=== PATIENT | female | born 1965 | race Caucasian/White ===

== ENCOUNTER 2016-06-28 08:48 | Emergency (ER) | payer OTHER ==
[~2016-06-28] VITALS: Ht 154.9 cm; Wt 70.5 kg
[~2016-06-28 08:48] MED LIST: NOMED
[2016-06-28 09:04] VITALS: BP 116/70; PULSE 81; RESP 15; O2SAT 95
--- NOTE | 2016-06-28 09:49 | ED.REPORT ---
HPI-Extremity Problem Upper Date of Service Jun 28, 2016 ED Provider: Tahmina Anguiano MD Pt is a 51 y/o female presenting to the ED c/o left forearm redness, swelling, and itching onset yesterday. The pt woke up with a swollen and erythematous left forearm yesterday morning and went to see her PCP. She was not started on antibiotics at that time. She decided to come into the ED today because the swelling has worsened. She was experiencing a low-grade fever (100.3 F) and myalgias yesterday which have resolved. She is a smoker. She denies numbness or weakness of the left arm, chills, N/V/D. Nursing Notes Stated Complaint: LEFT ARM SWELLING Chief Complaint: Extremity Trauma Nursing Notes Reviewed: Yes Allergies: Coded Allergies: No Known Allergies (Verified Allergy, Unknown, 04/08/16) Scheduled Clindamycin (Clindamycin) 300 Mg Capsule 300 MG PO QID Miscellaneous Medications No Historical Medication (No Historical Medication) Ea General Time Seen by MD: 09:41 Chief Complaint Other (Left forearm rash) Hx Obtained From: Patient Arrived By: Walk-in Onset Occurred: Yesterday Symptom Duration: Since onset Location: : Arm left Quality: Painful Severity: Current: Mild Severity: Maximum: Mild Past Medical History Past Medical History Denies Past Surgical History Reports: Appendectomy Smoking History Current Every Day Smoker Social History Alcohol Use: "Social" Drug Use: Denies drug use Other Social History: Good social support, , Local resident 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 GI: Denies: Diarrhea, Nausea, Vomiting Physical Exam Initial Vital Signs Vital Signs (First) Date Time Temp Pulse Resp B/P Pulse Ox O2 Delivery O2 Flow Rate FiO2 06/28/16 09:04 36.3 81 15 116/70 95 Room Air Initial VS: Reviewed, Vital signs normal Head / Eyes: Atraumatic, Normocephalic, PERRL ENT: Mucous membranes moist, Conjunctiva normal, No scleral icterus Neck: Supple, Full range of motion Respiratory: Breath sounds normal, Clear to auscultation, No respiratory distress Cardiovascular: Regular rate & rhythm, Heart sounds normal, Intact distal pulses Abdomen / GI: Soft Lower Extremities: Vascular intact, Neuro intact, No swelling, No tenderness Neurologic: Alert, Oriented, Nonfocal Psychiatric: Mood/affect normal, Behavior normal, Normal thought content General/Constitutional: Awake, Alert, No acute distress, Well appearing, Cooperative, Not toxic appearing Upper Extremity / MS: Atraumatic, Full range of motion, No deformity, Neurologic intact, Vascular intact, No ligamentous injury, Tendon function NL, No compartment syndrome, No clubbing/cyanosis Red, inflammated, tight, cellulitis from the knuckles to the elbow of the left arm No axillary adenopathy Interpretation & Diagnostics Lab Results Interpretation Result Diagram: 06/28/16 0958 06/28/16 0958 Test 06/28/16 09:58 06/28/16 13:10 White Blood Count 12.8th/mm3 (3.8-10.1) Red Blood Count 3.89mil/mm3 (3.90-5.20) Hemoglobin 12.2g/dL (12.0-15.6) Hematocrit 35.9% (35.0-46.0) Mean Corpuscular Volume 92.3fL (81-100) Mean Corpuscular Hemoglobin 31.4pg (27.0-35.0) Mean Corpuscular Hemoglobin Concent 34.0% (32.0-37.0) Red Cell Distribution Width 13.3% (12.3-15.4) Platelet Count 314bil/L (150-400) Neutrophils (%) (Auto) 81.9% (40-74) Lymphocytes (%) (Auto) 15.4% (14-46) Monocytes (%) (Auto) 2.2% (4-12) Eosinophils (%) (Auto) 0.1% (0-5) Basophils (%) (Auto) 0.2% (0-3) Sodium Level 138mEq/L (134-144) Potassium Level 3.7mEq/L (3.5-5.2) Chloride Level 100mEq/L (97-108) Carbon Dioxide Level 22mmol/L (18-29) Blood Urea Nitrogen 8mg/dL (6-24) Creatinine 0.56mg/dL (0.57-1.00) Estimat Glomerular Filtration Rate 163mL/min (>59) Glucose Level 134mg/dL (60-99) Calcium Level 9.1mg/dL (8.5-10.1) Magnesium Level 1.9mg/dL (1.6-2.6) Total Bilirubin 0.3mg/dL (0.0-1.2) Aspartate Amino Transf (AST/SGOT) 48U/L (0-50) Alanine Aminotransferase (ALT/SGPT) 57U/L (0-32) Alkaline Phosphatase 110U/L (25-150) Total Protein 6.5g/dL (6.4-8.4) Albumin 3.7g/dL (3.4-5.0) Lactic Acid Level 2.1mmol/L (0.4-2.0) Re-Eval/Medical Decision Med Decision/Clinical Course initally concerned for sepsis. After fluids (and abx) the miminally elevated lactic acid was trending down and the arm looked a bit less red with edges pulling back from the initially defined borders. shared concerns with her, good support and good understanding of proccess and need for medication compliance Re-Evaluation/Progress : Time of Eval: 14:40 Re-Evaluation/Progress Note: Pt rechecked. She is feeling improved. Rash line has decreased from sharpee on points. Informed pt of plan for treatment. Pt understands and agrees with plan for treatment. F/U and RTER warnings given. All questions addressed. Counseled Regarding: Diagnosis, Lab results, Need for follow-up, When/why to return to ED Discharge & Departure Impression: Primary Impression: Cellulitis of left arm Disposition: Home Discharge Condition All VS Reviewed: Yes Condition: Stable Patient Instructions: Cellulitis (ED) Additional Instructions: Your rash is consistent with cellulitis, an infection of the skin of the arm. I am starting you on Septra twice per day, and Clindamycin three times per day in an assumption that this is an MRSA infection. Please take 1 dose of each before bed tonight. If the blood culture results come back to contraindicate the antibiotic choice, you should receive a phone call. Return to the emergency department if you develop fever, chills, worsening swelling, worsening pain, expanding rash, you are feeling weak, vomiting, or for other new or worsening symptoms. Follow-up with your primary care doctor early next week. Referrals: Malu Castrejon (PCP) Aure Attestation Portions of this note were transcribed by Travis Rios. I, Dr. Anguiano personally performed the history, physical exam and medical decision-making; I reviewed and confirmed the accuracy of the information in the transcribed note. Signed by Aure Spencer, 06/28/16 - 1000 copies to: Malu Castrejon Shawna L MD Jun 28, 2016 09:49 TRAVIS RIOS Jun 28, 2016 09:53
[2016-06-28] MEDS ORDERED: cefTRIAXone Inj 2,000 MG in IV Premix 1 EACH IV ONE ×2 (10:15→10:20)
[2016-06-28 10:22] LABS: BASOPHILS % (AUTO) 0.2 % (0-3); EOSINOPHILS % (AUTO) 0.1 % (0-5); MONOCYTES % (AUTO) 2.2 % (4-12); Mean Corpuscular Hemoglobin 31.4 pg (27.0-35.0); Mean Corpuscular Volume 92.3 fL (81-100); NEUTROPHILS % (AUTO) 81.9 % (40-74); Platelet Count 314 bil/L (150-400)
[2016-06-28 10:59] LABS: Magnesium 1.9 mg/dL (1.6-2.6)
[2016-06-28] MEDS ORDERED: 0.9% Sodium Chloride 1,000 ML IV SCH (11:00)
[2016-06-28] MEDS ORDERED: Clindamycin Inj 900 MG in IV Premix 1 EACH IV ONE (11:00)
[2016-06-28] MEDS ORDERED: SULF1TAB7 PO (15:06)
[2016-06-28] MEDS ORDERED: CLIN-78 PO (15:06)
== END 2016-06-28 15:13 | disposition home or self-care (01) ==
LOC: SED 08:48
DX: L03.114 Cellulitis of left upper limb (principal); M79.1 Myalgia; F17.200 Nicotine dependence, unspecified, uncomplicated
CPT/HCPCS: 36415; 80053; 83605; 83735; 85025; 87040; 96361; 96365; 96367; 99284; J0696; J7030

== ENCOUNTER 2016-06-29 02:11 | Emergency (ER) | payer OTHER ==
[~2016-06-29] VITALS: Ht 154.9 cm; Wt 71.8 kg
[~2016-06-29 02:11] MED LIST changes: +CLIN-78 PO; +SULF1TAB7 PO
[2016-06-29 02:15] VITALS: BP 136/77; PULSE 86; RESP 18; O2SAT 99
--- NOTE | 2016-06-29 02:25 | ED.REPORT ---
HPI-Rash / Abscess Date of Service Jun 29, 2016 ED Provider: Tello Hines MD Pt is a 51 y/o female who presents to the ED complaining of rash and itching to the left forearm. Pt came in to the ED here this morning for the rash and was treated with IV fluids and antibiotics, and prescribed Sulfa drugs and Clindamycin. The symptoms have gradually worsened since her recent visit. Nursing Notes Stated Complaint: SWOLLEN LEFT ARM Chief Complaint: Skin Rash/Abscess Nursing Notes Reviewed: Yes Allergies: Coded Allergies: No Known Allergies (Verified Allergy, Unknown, 06/29/16) Scheduled Clindamycin (Clindamycin) 300 Mg Capsule 300 MG PO QID Sulfamethoxazole/Trimeth 800-160 mg (Bactrim DS) 1 Each Tablet 1 TABLET PO BID Miscellaneous Medications No Historical Medication (No Historical Medication) Ea General Time Seen by MD: 02:23 Chief Complaint Rash (left forearm) Hx Obtained From: Patient Arrived By: Walk-in Onset Occurred: Yesterday Symptom Duration: Since onset Location: : Forearm (left) Quality: Itching Severity: Current: Moderate Exacerbated by: Scratching Pertinent Negative: Relieved by nothing Recent Healthcare: Recent hospitalization Similar Sx Previous: Yes Past Medical History Past Medical History Denies Past Surgical History Reports: Appendectomy Smoking History Current Every Day Smoker Social History Alcohol Use: "Social" Drug Use: Denies drug use Other Social History: Good social support, , Local resident 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 Physical Exam Initial Vital Signs Vital Signs (First) Date Time Temp Pulse Resp B/P Pulse Ox O2 Delivery O2 Flow Rate FiO2 06/29/16 02:15 36.7 86 18 136/77 99 Room Air Initial VS: Reviewed, Vital signs normal Head / Eyes: Atraumatic, Normocephalic, PERRL Neck: Supple, Non-tender, Full range of motion Abdomen / GI: Soft, Non-tender, No guarding, No rebound, No distention Neurologic: Alert, Oriented, Nonfocal General/Constitutional: Awake, Alert, Cooperative, Not toxic appearing Color / Condition: Positive: Erythema localized, Rash present Rash / Lesion Location: Positive: Forearm L Respiratory / Chest: Breath sounds NL, Breath sounds = bilat, No respiratory distress, No rales, No rhonchi, No wheezing Cardiovascular: Heart rate NL, Regular rhythm, Heart sounds NL, Peripheral circulation NL Interpretation & Diagnostics Lab Results Interpretation Result Diagram: 06/29/16 0250 Test 06/29/16 02:50 White Blood Count 6.4th/mm3 (3.8-10.1) Red Blood Count 4.93mil/mm3 (3.90-5.20) Hemoglobin 15.4g/dL (12.0-15.6) Hematocrit 45.2% (35.0-46.0) Mean Corpuscular Volume 91.7fL (81-100) Mean Corpuscular Hemoglobin 31.2pg (27.0-35.0) Mean Corpuscular Hemoglobin Concent 34.1% (32.0-37.0) Red Cell Distribution Width 13.7% (12.3-15.4) Platelet Count 222bil/L (150-400) Neutrophils (%) (Auto) 76.1% (40-74) Lymphocytes (%) (Auto) 18.5% (14-46) Monocytes (%) (Auto) 3.8% (4-12) Eosinophils (%) (Auto) 0.9% (0-5) Basophils (%) (Auto) 0.5% (0-3) Lactic Acid Level 1.0mmol/L (0.4-2.0) Re-Eval/Medical Decision Med Decision/Clinical Course Left arm cellulitis with some expansion of the erythema beyond the marked leading edge. It itches. She is generally felt better. IV access was obtained and she was given an additional dose of Rocephin and clindamycin. Labs were unremarkable with no significant elevation of the white count or a lactic acid on this occasion. She will be discharged home to continue her outpatient antibiotics and follow-up with her primary doctor. Counseled Regarding: Diagnosis, Lab results, Need for follow-up, When/why to return to ED Discharge & Departure Impression: Primary Impression: Cellulitis of left arm Disposition: Home Discharge Condition All VS Reviewed: Yes Condition: Stable Patient Instructions: Cellulitis (ED) Additional Instructions: Your white blood count is not elevated and your lactic acid is normal. Received additional doses of Rocephin and clindamycin IV. Continue both of your outpatient antibiotics. Triamcinolone cream for the itching. Elevation. Recheck in 12-24 hours with your primary doctor. Referrals: Malu Castrejon (PCP) Aure Attestation Portions of this note were transcribed by Clark Easton & Volodymyr Basurto. I, Dr. Hines, personally performed the history, physical exam and medical decision-making; I reviewed and confirmed the accuracy of the information in the transcribed note. Signed by:Aure Lewis, 06/29/16 and 04:35 copies to: Malu Castrejon Howard L MD Jun 29, 2016 02:25 Clark Easton Jun 29, 2016 02:46 VOLODYMYR BASURTO Jun 29, 2016 03:02
[2016-06-29] MEDS ORDERED: 0.9% Sodium Chloride 1,000 ML IV ONE (02:33)
[2016-06-29] MEDS ORDERED: cefTRIAXone Inj 2,000 MG in IV Premix 1 EACH IV SCH (02:35)
[2016-06-29] MEDS ORDERED: Clindamycin Inj 900 MG in IV Premix 1 EACH IV ONE (02:35)
[2016-06-29 03:02] LABS: BASOPHILS % (AUTO) 0.5 % (0-3); EOSINOPHILS % (AUTO) 0.9 % (0-5); MONOCYTES % (AUTO) 3.8 % (4-12); Mean Corpuscular Hemoglobin 31.2 pg (27.0-35.0); Mean Corpuscular Volume 91.7 fL (81-100); NEUTROPHILS % (AUTO) 76.1 % (40-74); Platelet Count 222 bil/L (150-400)
[2016-06-29] MEDS: cefTRIAXone Inj 2,000 MG in IV Premix 1 EACH IV ONE ×2 (04:56→05:26)
[2016-06-29] MEDS ORDERED: Triamcinolone 0.1% 30 Gm Cream TOPICAL SCH ×2 (05:00→08:30)
[2016-06-29 05:34] VITALS: BP 122/74; PULSE 78; RESP 12; O2SAT 99
== END 2016-06-29 05:00 | disposition home or self-care (01) ==
LOC: SED 02:11
DX: L03.114 Cellulitis of left upper limb (principal); F17.210 Nicotine dependence, cigarettes, uncomplicated; Z90.49 Acquired absence of other specified parts of digestive tract
CPT/HCPCS: 36415; 83605; 85025; 96365; 96367; 99284; J0696; J7030

== ENCOUNTER 2016-12-01 12:26 | Emergency (ER) | payer OTHER ==
[~2016-12-01] VITALS: Ht 157.5 cm; Wt 68.2 kg
[2016-12-01 12:32] VITALS: BP 132/70; PULSE 73; RESP 16; O2SAT 97
--- NOTE | 2016-12-01 12:40 | ED.REPORT ---
HPI-Rash / Abscess Date of Service Dec 01, 2016 ED Provider: History of Present Illness: left arm redness, increased warmth hx of cellulitis on same arm. right hand dominant. denies pain, denies injury. Started this am Nursing Notes Stated Complaint: LEFT ARM SWOLLEN Chief Complaint: Extremity Trauma Nursing Notes Reviewed: Yes Allergies: Coded Allergies: No Known Allergies (Verified Allergy, Unknown, 06/29/16) Scheduled Clindamycin (Clindamycin) 300 Mg Capsule 300 MG PO QID Sulfamethoxazole/Trimeth 800-160 mg (Bactrim DS) 1 Each Tablet 1 TABLET PO BID Miscellaneous Medications No Historical Medication (No Historical Medication) Ea General Time Seen by MD: 12:40 Chief Complaint Rash Hx Obtained From: Patient Onset Occurred: 5 - 8 hours ago Severity: Current: No pain currently Past Medical History Past Medical History Denies Past Surgical History Reports: Appendectomy Smoking History Current Every Day Smoker Social History Alcohol Use: "Social" Drug Use: Denies drug use Other Social History: Good social support, , Local resident 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 Status Independent Review of Systems Basic Review of Systems : No dysuria, No frequency Neurologic: NL mental status, No weakness, No numbness Psychiatric: Normal thought content Physical Exam Initial Vital Signs Vital Signs (First) Date Time Temp Pulse Resp B/P Pulse Ox O2 Delivery O2 Flow Rate FiO2 12/01/16 12:32 36.3 73 16 132/70 97 Room Air Initial VS: Reviewed, Vital signs normal Head / Eyes: Atraumatic, Normocephalic, PERRL ENT: Mucous membranes moist, Conjunctiva normal, No scleral icterus Neck: Supple, Non-tender, Full range of motion Respiratory: Breath sounds normal, Clear to auscultation, No respiratory distress Cardiovascular: Regular rate & rhythm, Heart sounds normal, Intact distal pulses Abdomen / GI: Soft, Non-tender, No guarding, No rebound, No distention Back: No CVA tenderness Lymphatic: No lymphadenopathy Extremities: Vascular intact, Neuro intact, No swelling, No tenderness Neurologic: Alert, Oriented, Nonfocal Psychiatric: Mood/affect normal, Behavior normal, Normal thought content General/Constitutional: Awake, Alert, No acute distress Head / Eyes: Atraumatic, Normocephalic, PERRL Respiratory / Chest: Atraumatic, Breath sounds NL, Breath sounds = bilat, No respiratory distress Cardiovascular: Heart rate NL, Regular rhythm, Heart sounds NL, No gallop Re-Eval/Medical Decision Med Decision/Clinical Course 51 year old female presents to the ER for evualation of cellulitis. Patient has had this before on the same arm. This time she presents the day she noticed symptoms. No sign of compartment syndrome or cutaneous anthrax. Exam is consistent with cellulitis. Patient is started on antibiotics and is to recheck with primary care or here in the next day or 2. Discharge & Departure Impression: Primary Impression: Cellulitis of left arm Disposition: Home Patient Instructions: Cellulitis (ED) Additional Instructions: Exam indicates a cellulitis. The area has been outlined, timed and dated. If the redness goes past the line by more than 1 inch, return to the ER. No work on Sunday or Sunday or Sunday. You need to be seen by primary care on Sunday or return to the ER. Start bactrim in the am and pm. Get 2 doses in today. Start keflex 500 mg 4 times a day for 7 days. Return with any concerns. Get a sling and use it. Do not use the arm. Referrals: Malu Castrejon (PCP) EDSupervising Provider for APC: Joss Reddy MD copies to: Malu Castrejon Sue ARNP Dec 01, 2016 12:40
== END 2016-12-01 13:07 | disposition home or self-care (01) ==
LOC: SED 12:26
DX: L03.114 Cellulitis of left upper limb (principal); F17.200 Nicotine dependence, unspecified, uncomplicated

== ENCOUNTER 2016-12-02 12:18 | Emergency (ER) | payer OTHER ==
[~2016-12-02] VITALS: Ht 157.5 cm; Wt 68.2 kg
[2016-12-02 12:24] VITALS: BP 154/84; PULSE 76; RESP 18; O2SAT 98
[2016-12-02 12:55] LABS: BASOPHILS % (AUTO) 0.4 % (0-3); EOSINOPHILS % (AUTO) 1.6 % (0-5); MONOCYTES % (AUTO) 5.6 % (4-12); Mean Corpuscular Hemoglobin 31.4 pg (27.0-35.0); Mean Corpuscular Volume 91.9 fL (81-100); Platelet Count 271 bil/L (150-400)
--- NOTE | 2016-12-02 14:06 | ED.REPORT ---
HPI-Extremity Problem Upper Date of Service Dec 02, 2016 ED Provider: Ramonita Lucas History of Present Illness: redness has increased since yeaterday. The orginal site is not as hot as yesterday. Pateint has not eaten all day. reporting feeling better after eating. Nursing Notes Stated Complaint: LEFT ARM SWELLING Chief Complaint: Skin Rash/Abscess Nursing Notes Reviewed: Yes Allergies: Coded Allergies: No Known Allergies (Verified Allergy, Unknown, 12/02/16) Scheduled Clindamycin (Clindamycin) 300 Mg Capsule 300 MG PO QID Sulfamethoxazole/Trimeth 800-160 mg (Bactrim DS) 1 Each Tablet 1 TABLET PO BID Miscellaneous Medications No Historical Medication (No Historical Medication) Ea General Time Seen by MD: 14:05 Chief Complaint Forearm injury left Hx Obtained From: Patient Past Medical History Past Medical History Denies Past Surgical History Reports: Appendectomy Smoking History Current Every Day Smoker Social History Alcohol Use: "Social" Drug Use: Denies drug use Other Social History: Good social support, , Local resident 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 Status Independent Review of Systems Basic Review of Systems Eyes: Vision NL, No discharge : No dysuria, No frequency Psychiatric: Normal thought content Physical Exam Initial Vital Signs Vital Signs (First) Date Time Temp Pulse Resp B/P Pulse Ox O2 Delivery O2 Flow Rate FiO2 12/02/16 12:24 36.7 76 18 154/84 98 Room Air Initial VS: Reviewed, Vital signs normal General/Constitutional: Well-developed, Well-nourished Head / Eyes: Atraumatic, Normocephalic, PERRL ENT: Mucous membranes moist, Conjunctiva normal, No scleral icterus Neck: Supple, Non-tender, Full range of motion Respiratory: Breath sounds normal, Clear to auscultation, No respiratory distress Cardiovascular: Regular rate & rhythm, Heart sounds normal, Intact distal pulses Abdomen / GI: Soft, Non-tender, No guarding, No rebound, No distention Back: No CVA tenderness Lymphatic: No lymphadenopathy Lower Extremities: Vascular intact, Neuro intact, No swelling, No tenderness Skin: Warm, Dry, No cyanosis Neurologic: Alert, Oriented, Nonfocal Psychiatric: Mood/affect normal, Behavior normal, Normal thought content General/Constitutional: Awake, Alert, No acute distress, Well appearing, Well developed, Well hydrated, Well nourished, Cooperative, Not toxic appearing Respiratory / Chest: Atraumatic, Breath sounds NL, Breath sounds = bilat, No respiratory distress Cardiovascular: Heart rate NL, Regular rhythm, Heart sounds NL erthyma has increased but minimally Wrist / Hand: Atraumatic, Inspection NL, Full range of motion, No swelling, No erythema Interpretation & Diagnostics Lab Results Interpretation Result Diagram: 12/02/16 1240 12/02/16 1227 Test 12/02/16 12:27 12/02/16 12:40 12/02/16 17:50 Sodium Level 135mEq/L (134-144) Potassium Level 4.2mEq/L (3.5-5.2) Chloride Level 97mEq/L (97-108) Carbon Dioxide Level 22mmol/L (18-29) Blood Urea Nitrogen 12mg/dL (6-24) Creatinine 0.79mg/dL (0.57-1.00) Estimat Glomerular Filtration Rate 110mL/min (>59) Glucose Level 152mg/dL (60-99) Calcium Level 9.1mg/dL (8.5-10.1) Total Bilirubin 0.3mg/dL (0.0-1.2) Aspartate Amino Transf (AST/SGOT) 18U/L (0-50) Alanine Aminotransferase (ALT/SGPT) 12U/L (0-32) Alkaline Phosphatase 130U/L (25-150) Total Protein 6.8g/dL (6.4-8.4) Albumin 4.1g/dL (3.4-5.0) White Blood Count 7.7th/mm3 (3.8-10.1) Red Blood Count 4.94mil/mm3 (3.90-5.20) Hemoglobin 15.5g/dL (12.0-15.6) Hematocrit 45.4% (35.0-46.0) Mean Corpuscular Volume 91.9fL (81-100) Mean Corpuscular Hemoglobin 31.4pg (27.0-35.0) Mean Corpuscular Hemoglobin Concent 34.1% (32.0-37.0) Red Cell Distribution Width 13.0% (12.3-15.4) Platelet Count 271bil/L (150-400) Neutrophils (%) (Auto) 66.0% (40-74) Lymphocytes (%) (Auto) 26.3% (14-46) Monocytes (%) (Auto) 5.6% (4-12) Eosinophils (%) (Auto) 1.6% (0-5) Basophils (%) (Auto) 0.4% (0-3) Lactic Acid Level 0.9mmol/L (0.4-2.0) US Soft Tissue/Musculoskeletal PROCEDURE: US VENOUS ARM DUPLEX UNILATERAL, LEFT INDICATIONS: ? DVT ? Abscess TECHNIQUE: Real-time imaging, as well as color and pulse Doppler interrogation, was performed of the left upper extremity deep veins from the inferior neck to the antecubital fossa. COMPARISON: None. FINDINGS: The internal jugular vein, visualized portions of the subclavian vein, axillary, and brachial veins are free of intraluminal thrombus. Where physically possible, the veins are normally compressible. Color and pulse Doppler demonstrate normal intraluminal flow, with expected phasicity and pulsatility. Additional scanning of the cephalic and basilic veins of the superficial system demonstrate normal compressibility, without thrombus. IMPRESSION: No evidence of thrombus is seen in the left upper extremity. In the area of redness on the dorsal aspect of the forearm there is no evidence for abscess. Dictated by: Anderson Carter M.D. on 12/02/2016 at 15:28 Approved by: Anderson Carter M.D. on 12/02/2016 at 15:29 Re-Eval/Medical Decision Med Decision/Clinical Course 51 year old female presents for evualation of cellulitis which started yesterday. There has been extension of erthyma outside the line . Labs are normal. lactic has normalized after fluids are provided. no sign of compartment syndrome or abscess or DVT formation. Patient to recheck tomorrow at the ER Discharge & Departure Impression: Primary Impression: Cellulitis Site of cellulitis of extremity: upper extremity Laterality: left Disposition: Home Patient Instructions: Cellulitis (ED) Additional Instructions: There has been a small increase in the red area. With being on the antibiotics less than 24 hours that is expected. Continue with the oral antibiotics. You will need to recheck here at the ER tomorrow with Ramonita faria. I start at 11 am tomorrow. Referrals: Malu Castrejon (PCP) EDSupervising Provider for APC: Stephane Harrison DO copies to: Malu Castrejon Sue ARNP Dec 02, 2016 14:06
[2016-12-02] MEDS ORDERED: cefTRIAXone Inj 2,000 MG in Dextrose 5% Minibag Plus 50 ML IV ONE (14:20)
[2016-12-02] MEDS ORDERED: Vancomycin Inj 1,000 MG in IV Premix 1 EACH IV ONE (14:20)
[2016-12-02] MEDS ORDERED: 0.9% Sodium Chloride 1,000 ML IV ONE (14:20)
--- NOTE | 2016-12-02 15:31 | DRSVH ---
PROCEDURE: US VENOUS ARM DUPLEX UNILATERAL, LEFT INDICATIONS: ? DVT ? Abscess TECHNIQUE: Real-time imaging, as well as color and pulse Doppler interrogation, was performed of the left upper extremity deep veins from the inferior neck to the antecubital fossa. COMPARISON: None. FINDINGS: The internal jugular vein, visualized portions of the subclavian vein, axillary, and brach ial veins are free of intraluminal thrombus. Where physically possible, the veins are normally compr essible. Color and pulse Doppler demonstrate normal intraluminal flow, with expected phasicity and p ulsatility. Additional scanning of the cephalic and basilic veins of the superficial system demonstr ate normal compressibility, without thrombus. IMPRESSION: No evidence of thrombus is seen in the left upper extremity. In the area of redness on th e dorsal aspect of the forearm there is no evidence for abscess. Dictated by: Anderson Carter M.D. on 12/02/2016 at 15:28 Approved by: Anderson Carter M.D. on 12/02/2016 at 15:29
[2016-12-02 17:45] VITALS: BP 132/91; PULSE 79; RESP 18
== END 2016-12-02 18:00 | disposition home or self-care (01) ==
LOC: SED 12:18
DX: L03.114 Cellulitis of left upper limb (principal); F17.200 Nicotine dependence, unspecified, uncomplicated; Z90.89 Acquired absence of other organs
CPT/HCPCS: 36415; 80053; 83605; 85025; 93971; 96365; 96367; 96375; 99285; J0696; J1885; J3370; J7030

== ENCOUNTER 2016-12-03 18:03 | Emergency (ER) | payer OTHER ==
[~2016-12-03] VITALS: Ht 157.5 cm; Wt 68.2 kg
[2016-12-03 18:11] VITALS: BP 117/75; PULSE 72; RESP 16; O2SAT 97
--- NOTE | 2016-12-03 18:20 | ED.REPORT ---
HPI-Recheck W/B/S Date of Service Dec 03, 2016 ED Provider: History of Present Illness: here for recheck of cellulitis. patient reporting redness is greatly decreased and feeling better. Nursing Notes Stated Complaint: RECHECK Chief Complaint: Skin Rash/Abscess Nursing Notes Reviewed: Yes Allergies: Coded Allergies: No Known Allergies (Verified Allergy, Unknown, 12/02/16) Scheduled Clindamycin (Clindamycin) 300 Mg Capsule 300 MG PO QID Sulfamethoxazole/Trimeth 800-160 mg (Bactrim DS) 1 Each Tablet 1 TABLET PO BID Miscellaneous Medications No Historical Medication (No Historical Medication) Ea General Time Seen by Provider: 18:18 Chief Complaint Wound check Hx Obtained From: Patient Onset Occurred: 3 days ago Past Medical History Past Medical History Denies Past Surgical History Reports: Appendectomy Smoking History Current Every Day Smoker Social History Alcohol Use: "Social" Drug Use: Denies drug use Other Social History: Good social support, , Local resident 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 Status Independent Review of Systems Basic Review of Systems Eyes: Vision NL, No discharge : No dysuria, No frequency Neurologic: NL mental status, No weakness, No numbness Psychiatric: Normal thought content Physical Exam Initial Vital Signs Vital Signs (First) Date Time Temp Pulse Resp B/P Pulse Ox O2 Delivery O2 Flow Rate FiO2 12/03/16 18:11 36.4 72 16 117/75 97 Room Air Initial VS: Reviewed, Vital signs normal General/Constitutional: Well-developed, Well-nourished Head / Eyes: Atraumatic, Normocephalic, PERRL ENT: Mucous membranes moist, Conjunctiva normal, No scleral icterus Neck: Supple, Non-tender, Full range of motion Respiratory: Breath sounds normal, Clear to auscultation, No respiratory distress Cardiovascular: Regular rate & rhythm, Heart sounds normal, Intact distal pulses Abdomen / GI: Soft, Non-tender, No guarding, No rebound, No distention Back: No CVA tenderness Lymphatic: No lymphadenopathy Extremities: Vascular intact, Neuro intact, No swelling, No tenderness Neurologic: Alert, Oriented, Nonfocal Psychiatric: Mood/affect normal, Behavior normal, Normal thought content Rash / Lesion Notes: decreased erthyma and decreased warmth General/Constitutional: Awake, Alert, No acute distress, Well appearing, Well developed, Well hydrated, Well nourished, Cooperative, Not toxic appearing Head / Eyes: Atraumatic, Normocephalic, PERRL, EOMI ENT: Atraumatic, Airway patent, Mucous membranes moist, Pharynx NL Respiratory / Chest: Atraumatic, Breath sounds NL, Breath sounds = bilat, No respiratory distress Cardiovascular: Heart rate NL, Regular rhythm, Heart sounds NL Re-Eval/Medical Decision Med Decision/Clinical Course 51 year old female presents for recheck of cellulitis. The redness has decreased greatly. No sign of compartment syndrome Discharge & Departure Impression: Primary Impression: Cellulitis Site of cellulitis of extremity: upper extremity Laterality: left Disposition: Home Patient Instructions: Cellulitis (ED) Additional Instructions: The cellulitis is greatly improved. Continue with the antibiotics. You can follow with Malu on Sunday instead of Sunday. Return if you see any changes. I am glad you are improving!!! Referrals: Malu Castrejon (PCP) EDSupervising Provider for APC: Joss Reddy MD copies to: Malu Castrejon Sue ARNP Dec 03, 2016 18:20
[2016-12-03 18:46] VITALS: BP 117/75; PULSE 72; RESP 16; O2SAT 97
== END 2016-12-03 18:46 | disposition home or self-care (01) ==
LOC: SED 18:03
DX: L03.114 Cellulitis of left upper limb (principal); F17.200 Nicotine dependence, unspecified, uncomplicated